=== PATIENT | male | born 1960 | race Caucasian/White ===

== ENCOUNTER 2018-06-03 07:46 | Emergency (ER) | payer OTHER ==
[~2018-06-03] VITALS: Ht 172.7 cm; Wt 97.5 kg
[~2018-06-03 07:46] MED LIST: ATORVASTATIN CA10 M1 PO; CYCLOBENZAPRINE10 M1 PO; LIDOCAINE-PRILO30 GM TOP; MOBIC15 M1 PO; TESTIM5 GM TOP
--- NOTE | 2018-06-03 08:14 | ED GENERAL ADULT ---
History of Present Illness General Chief Complaint: General Adult Stated Complaint: NUMBNESS TO L LEG FROM GROIN TO TOES Source: patient Exam Limitations: no limitations Vital Signs & Intake/Output Vital Signs & Intake/Output Vital Signs Date Time Temp Pulse Resp B/P B/P Pulse O2 O2 Flow FiO2 Mean Ox Delivery Rate 06/03 1007 97.0 84 16 128/86 99 Room Air 06/03 0955 97.0 80 148/87 100 Room Air 06/03 0750 97.0 63 20 151/90 97 Room Air Allergies Coded Allergies: No Known Drug Allergies (NKDA 08/06/17) Reconcile Medications Aspirin (Aspirin*) 81 MG TAB.CHEW 1 TAB PO DAILY HEART HEALTH (Reported) Cyclobenzaprine HCl 10 MG TABLET 1 TAB PO BID PRN PAIN Lactobacillus Acidophilus (Probiotic) 10 BILLION CELL CAPSULE 1 CAP PO DAILY GI (Reported) Prednisone (Deltasone) 20 MG TABLET 1 TAB PO DAILY [place] Rosuvastatin Calcium (Crestor) 20 MG TABLET 1 TAB PO DAILY cholesterol ( Reported) Testosterone (Testim) 50 MG/5 GRAM (1 %) GEL..GRAM. 1 SALVADOR TOP UNKNOWN ( Reported) Triage Note: C/O PAIN FROM GROIN DOWN THE FRONT OF LEFT LEG X 2-3 DAYS. STATES NOW HIS LEG IS GOING NUMB. PT STATES HE TESTED POSITIVE FOR FACTOR 5 AFTER SISTER WAS DIAGNOSED WITH BLOOD CLOT Triage Nurses Notes Reviewed? yes Onset: Gradual Duration: day(s): Timing: recent history HPI: 06/03/18 7 PM This is a 58-year-old man who presents to the emergency department complaining of left leg pain. He states he has pain radiating down the left leg. It is worse when he moves his leg. It radiates down the buttocks. He has no abdominal pain. He is concerned that he may have a blood clot, as he has a family history of factor V Leiden Past History Travel History Traveled to [place] past 21 day No Medical History Any Pertinent Medical History? see below for history Cardiovascular: hyperlipidemia Endocrine: LOW T Blood Disorders: FACTOR 5 Surgical History Surgical History: non-contributory Psychosocial History What is your primary language Serbian Tobacco Use: Current Not Daily ETOH Use: occasional use Illicit Drug Use: denies illicit drug use Family History Hx Contributory? Yes (factor V leiden) Review of Systems Review of Systems Constitutional: Denies: fever. EENTM: Denies: visual changes. Respiratory: Denies: short of breath. Cardiovascular: Denies: chest pain. GI: Denies: abdominal pain. Genitourinary: Reports: no symptoms. Musculoskeletal: Reports: see HPI. Denies: back pain. Skin: Denies: rash. Neurological/Psychological: Reports: see HPI. Hematologic/Endocrine: Reports: see HPI. Immunologic/Allergic: Reports: see HPI. Physical Exam Physical Exam General Appearance: well developed/nourished, alert, awake, anxious, mild distress Head: atraumatic, normal appearance Eyes: Bilateral: normal appearance, PERRL, EOMI. Ears, Nose, Throat: normal pharynx, normal ENT inspection, hearing grossly normal Neck: normal inspection, supple, full range of motion Respiratory: chest non-tender, no respiratory distress Cardiovascular: regular rate/rhythm Peripheral Pulses: 4+ tibialis posterior (L) Gastrointestinal: non-tender Back: normal range of motion Extremities: no edema Neurologic/Psych: no motor/sensory deficits, awake, alert, oriented x 3 Skin: intact, normal color, warm/dry Comments: Patient has reproducible pain to the left hip with extension of the leg. No objective swelling. No back pain or abdominal pain. The temperature to the left lemon and dorsal aspect of the left foot is normal. He has an excellent left posterior tibial pulse. He is ambulating without difficulty. Core Measures ACS in differential dx? No CVA/TIA Diagnosis: No Sepsis Present: No Sepsis Focused Exam Completed? No Progress Differential Diagnoses I considered the following diagnoses in my evaluation of the patient: [DVT, aortic dissection, arterial insufficiency, epidural abscess, lumbar radiculopathy, spinal stenosis] Plan of Care: Orders Procedure Date/time Status COMPREHENSIVE METABOLIC PANEL 06/03 0852 Complete CREATINE PHOSPHOKINASE 06/03 0852 Complete CBC WITHOUT DIFFERENTIAL 06/03 0852 Complete Laboratory Tests 06/03/18 0935: Anion Gap 9, Estimated GFR > 60, BUN/Creatinine Ratio 28.6 H, Glucose 101 H, Calcium 9.3, Total Bilirubin 1.2, AST 22, ALT 30, Alkaline Phosphatase 63, Creatine Kinase 79, Total Protein 7.3, Albumin 4.1, Globulin 3.2, Albumin/ Globulin Ratio 1.3, CBC w Diff NO MAN DIFF REQ, RBC 5.19, MCV 87.8, MCH 29.9, MCHC 34.1, RDW 13.0, MPV 7.7, Gran % 58.7, Lymphocytes % 33.5, Monocytes % 6.7, Eosinophils % 0.7, Basophils % 0.4, Absolute Granulocytes 4.2, Absolute Lymphocytes 2.4, Absolute Monocytes 0.5, Absolute Eosinophils 0, Absolute Basophils 0 Initial ED EKG: none Departure Departure Disposition: HOME OR SELF CARE Condition: Stable Clinical Impression Primary Impression: Lumbar radiculopathy Referrals: Chidi CAZARES,Grant Meehan (PCP/Family) Departure Forms: Customer Survey General Discharge Information Prescriptions: Current Visit Scripts Prednisone (Deltasone) 1 TAB PO DAILY #6 TAB Cyclobenzaprine HCl 1 TAB PO BID PRN PAIN #20 TAB Comments PATIENT: LILIAN RIDER JR PRESENT AGE: 58 PATIENT ACCOUNT NO: [id number] : 61 LOCATION: [facility] ORDERING PHYSICIAN: Forest Munoz DO SERVICE DATE: 06/03/18 EXAM TYPE: US - US-DUPLEX VENOUS EXTREM UNI EXAMINATION: LEFT LOWER EXTREMITY DEEP VENOUS ULTRASOUND CLINICAL INFORMATION: Left lower extremity pain and swelling. COMPARISON: None. TECHNIQUE: Duplex Doppler imaging with compression maneuvers were performed of the left lower extremity deep venous system. FINDINGS: The visualized common femoral, femoral and popliteal veins demonstrate normal compressibility and color flow without evidence of venous thrombosis. Visualized portions of the calf veins demonstrate normal color fill-in suggesting patency. There is no evidence of a Gómez's cyst. IMPRESSION: No evidence of deep venous thrombosis involving the left lower extremity. DICTATED BY: Seven Calderon MD DATE/TIME DICTATED:06/03/181003 DIRECTOR BEHAVIORAL HEALTH:GEETA DATE/TIME TRANSCRIBED:06/03/181003 CONFIDENTIAL, DO NOT COPY WITHOUT APPROPRIATE AUTHORIZATION. <Electronically signed in Other Vendor System> SIGNED BY: Seven Calderon MD 06/03/181008 PATIENT: LILIAN RIDER JR PRESENT AGE: 58 PATIENT ACCOUNT NO: [id number] : 62 LOCATION: [facility] ORDERING PHYSICIAN: Forest Munoz DO SERVICE DATE: 06/03/18 EXAM TYPE: CAT - CT LUMB SPINE WO IV CONTRAST CT LUMBAR SPINE WITHOUT IV CONTRAST CLINICAL INFORMATION: Back pain and left leg numbness. Rule out disc herniation. COMPARISON: None available. TECHNIQUE: Helical non-contrast CT images were obtained through the lumbar spine and 1.25 and 2.5 mm axial reconstructions were reviewed along with sagittal and coronal MPRs. FINDINGS: There are 5 nonrib-bearing lumbar-type vertebral bodies. Lumbar alignment is maintained. The vertebral body heights are preserved. There is severe disc volume loss, there is vacuum phenomenon, there is opposing endplate sclerosis and irregularity at L4-L5. Remaining disc volumes are preserved. There are no acute fractures and there are no acute subluxations. There is no spondylolisthesis. Ankylosis of the right SI joint. Aortoiliac atherosclerotic calcification. L1-L2: There is a diffuse annular disc bulge and there is mild bilateral facet arthropathy. No appreciable central canal stenosis. There is likely mild foraminal narrowing bilaterally. L2-L3: Diffuse annular disc bulge and mild bilateral facet arthropathy. No appreciable central canal stenosis and no significant foraminal stenosis. L3-L4: There is a left lateral disc protrusion resulting in moderate to severe left sided foraminal stenosis with suspected compression of the foraminal and extraforaminal segments of the exiting left L3 nerve root. Background annular disc bulge and mild bilateral facet arthropathy. There is likely mild narrowing of the central canal. Mild right foraminal narrowing. L4-L5: There are laminectomy changes. Diffuse disc osteophyte complex and bilateral hypertrophic facet arthropathy. Findings in concert result in suspected mild to moderate central canal stenosis, left greater than right subarticular zone stenosis with possible mass effect on the traversing L5 nerve roots, and severe left and moderate right foraminal stenosis with mass effect on the exiting left L4 nerve root. L5-S1: Diffuse annular disc bulge and severe right and moderate left hypertrophic facet arthropathy. No appreciable central canal stenosis. There is mild foraminal narrowing bilaterally. IMPRESSION: - At L3-L4, there is a left lateral disc protrusion resulting in moderate to severe left sided foraminal stenosis with suspected compression of the foraminal and extraforaminal segments of the exiting left L3 nerve root. - At L4-L5, there is severe degenerative disc disease and there are laminectomy changes. Multifactorial degenerative changes at L4-L5 result in suspected mild to moderate central canal stenosis, left greater than right subarticular zone stenosis with possible mass effect on the traversing L5 nerve roots bilaterally, and severe left and moderate right foraminal stenosis with mass effect on the exiting left L4 nerve root. - Additional degenerative findings as discussed above. Ankylosis of the right SI joint. DICTATED BY: Forest Gomez MD DATE/TIME DICTATED:06/03/18935 DIRECTOR BEHAVIORAL HEALTH:GEETA DATE/TIME TRANSCRIBED:06/03/18935 CONFIDENTIAL, DO NOT COPY WITHOUT APPROPRIATE AUTHORIZATION. <Electronically signed in Other Vendor System> SIGNED BY: Forest Gomez MD 06/03/18 0952 Critical Care Note Critical Care Note Critical Care Time: non-applicable Comments: The patient was treated with by mouth prednisone and Flexeril. He is instructed to follow-up with his doctor this week.
[2018-06-03 09:44] LABS: ABSOLUTE BASOPHIL COUNT 0 /CUMM (0.0-0.2); ABSOLUTE EOSINOPHIL COUNT 0 /CUMM (0.0-0.7); ABSOLUTE GRANULOCYTE CT 4.2 /CUMM (1.4-6.5); ABSOLUTE LYMPH COUNT 2.4 /CUMM (1.2-3.4); ABSOLUTE MONOCYTE COUNT 0.5 /CUMM (0.10-0.60); BASOPHIL % 0.4 % (0.0-2.0); EOSINOPHIL % 0.7 % (0-5); GRANULOCYTE % 58.7 % (42.2-75.2); HEMATOCRIT 45.5 % (42-52); MEAN CORPUSCULAR HGB 29.9 PG (27.0-31.0); MEAN CORPUSCULAR HGB CONC 34.1 G/DL (33.0-37.0); MEAN CORPUSCULAR VOLUME 87.8 FL (80.0-94.0); MEAN PLATELET VOLUME 7.7 FL (7.4-10.4); PLATELET COUNT 221 /CUMM (130-400); RED BLOOD CELL CT 5.19 /CUMM (4.70-6.10); WHITE BLOOD CELL COUNT 7.2 /CUMM (4.8-10.8)
--- NOTE | 2018-06-03 09:52 | CT SCAN REPORT ---
CT LUMBAR SPINE WITHOUT IV CONTRAST CLINICAL INFORMATION: Back pain and left leg numbness. Rule out disc herniation. COMPARISON: None available. TECHNIQUE: Helical non-contrast CT images were obtained through the lumbar spine and 1.25 and 2.5 mm axial reconstructions were reviewed along with sagittal and coronal MPRs. FINDINGS: There are 5 nonrib-bearing lumbar-type vertebral bodies. Lumbar alignment is maintained. The vertebral body heights are preserved. There is severe disc volume loss, there is vacuum phenomenon, there is opposing endplate sclerosis and irregularity at L4-L5. Remaining disc volumes are preserved. There are no acute fractures and there are no acute subluxations. There is no spondylolisthesis. Ankylosis of the right SI joint. Aortoiliac atherosclerotic calcification. L1-L2: There is a diffuse annular disc bulge and there is mild bilateral facet arthropathy. No appreciable central canal stenosis. There is likely mild foraminal narrowing bilaterally. L2-L3: Diffuse annular disc bulge and mild bilateral facet arthropathy. No appreciable central canal stenosis and no significant foraminal stenosis. L3-L4: There is a left lateral disc protrusion resulting in moderate to severe left sided foraminal stenosis with suspected compression of the foraminal and extraforaminal segments of the exiting left L3 nerve root. Background annular disc bulge and mild bilateral facet arthropathy. There is likely mild narrowing of the central canal. Mild right foraminal narrowing. L4-L5: There are laminectomy changes. Diffuse disc osteophyte complex and bilateral hypertrophic facet arthropathy. Findings in concert result in suspected mild to moderate central canal stenosis, left greater than right subarticular zone stenosis with possible mass effect on the traversing L5 nerve roots, and severe left and moderate right foraminal stenosis with mass effect on the exiting left L4 nerve root. L5-S1: Diffuse annular disc bulge and severe right and moderate left hypertrophic facet arthropathy. No appreciable central canal stenosis. There is mild foraminal narrowing bilaterally. IMPRESSION: - At L3-L4, there is a left lateral disc protrusion resulting in moderate to severe left sided foraminal stenosis with suspected compression of the foraminal and extraforaminal segments of the exiting left L3 nerve root. - At L4-L5, there is severe degenerative disc disease and there are laminectomy changes. Multifactorial degenerative changes at L4-L5 result in suspected mild to moderate central canal stenosis, left greater than right subarticular zone stenosis with possible mass effect on the traversing L5 nerve roots bilaterally, and severe left and moderate right foraminal stenosis with mass effect on the exiting left L4 nerve root. - Additional degenerative findings as discussed above. Ankylosis of the right SI joint.
[2018-06-03] MEDS ORDERED: CRESTOR20 M2 PO (10:03)
[2018-06-03] MEDS ORDERED: PROBIOTIC1 EACH PO (10:04)
[2018-06-03] MEDS ORDERED: ASPIRIN81 M4 PO (10:04)
[2018-06-03 10:07] VITALS: BP 128/86
--- NOTE | 2018-06-03 10:09 | ULTRASOUND REPORT ---
EXAMINATION: LEFT LOWER EXTREMITY DEEP VENOUS ULTRASOUND CLINICAL INFORMATION: Left lower extremity pain and swelling. COMPARISON: None. TECHNIQUE: Duplex Doppler imaging with compression maneuvers were performed of the left lower extremity deep venous system. FINDINGS: The visualized common femoral, femoral and popliteal veins demonstrate normal compressibility and color flow without evidence of venous thrombosis. Visualized portions of the calf veins demonstrate normal color fill-in suggesting patency. There is no evidence of a Gómez's cyst. IMPRESSION: No evidence of deep venous thrombosis involving the left lower extremity.
[2018-06-03] MEDS ORDERED: DELTASONE20 MG PO (11:56)
[2018-06-03] MEDS ORDERED: CYCLOBENZAPRINE10 M1 PO (11:56)
== END 2018-06-03 12:06 ==
LOC: ERH 07:46
PROVIDERS: Emergency Medicine
DX: M54.16 Radiculopathy, lumbar region (principal); R20.0 Anesthesia of skin; M79.605 Pain in left leg; D68.2 Hereditary deficiency of other clotting factors